=== PATIENT | female | born 1950 | race Caucasian/White ===

== ENCOUNTER 2018-04-15 06:39 | Day surgery (SDC) | payer OTHER ==
[2018-04-15 07:23] VITALS: RESP 16
[2018-04-15] MEDS ORDERED: Lactated Ringer's 1,000 ML IV ONE (08:45)
[2018-04-15] MEDS ORDERED: Propofol 10 mg/ml Inj (20 ML) ONE (08:51)
[2018-04-15] MEDS ORDERED: Lactated Ringer's 500 ML IV SCH (09:00)
[2018-04-15 10:02] VITALS: BP 120/76; PULSE 58; TEMP 97.4; O2SAT 98
== END 2018-04-15 10:21 | disposition home or self-care (01) ==
LOC: C.ENDO 06:39
PROVIDERS: ATTEND Internal Medicine Gastroenterology
DX: Z12.11 Encounter for screening for malignant neoplasm of colon (principal); K63.5 Polyp of colon; K57.30 Diverticulosis of large intestine without perforation or abscess without bleeding; K64.1 Second degree hemorrhoids
CPT/HCPCS: 45385; 88305; J2704; J3010; J7120